=== PATIENT | female | born 1990 | race Native Hawaiian/Other Pacific Islander ===

== ENCOUNTER 2016-07-26 22:57 | Emergency (ER) | payer OTHER ==
[~2016-07-26] VITALS: Ht 154.9 cm; Wt 60.3 kg
[2016-07-26 23:50] LABS: PLATELET COUNT 341 K/uL (152-353)
[2016-07-26 23:56] LABS: POTASSIUM 3.6 mmol/L (3.6-5.2); SODIUM 135 mmol/L (136-145)
== END 2016-07-27 00:50 | disposition home or self-care (01) ==
LOC: ED 22:57
DX: F41.9 Anxiety disorder, unspecified (principal)
CPT/HCPCS: 36415; 80053; 85027; 93005; 99283